=== PATIENT | female | born 1990 | race Hispanic/Latino ===

== ENCOUNTER 2017-08-06 09:09 | Emergency (ER) | payer SELFPAY ==
[2017-08-06 09:15] VITALS: RESP 18; O2SAT 100
[2017-08-06] MEDS ORDERED: Naproxen 550 mg Tab PO STA (09:30)
--- NOTE | 2017-08-06 09:32 | C.PDOC ---
History Of Present Illness 27-YEAR-OLD FEMALE, PRESENTS TO THE EMERGENCY DEPARTMENT WITH COMPLAINTS OF L FOOT INJURY YEST. PS ACCIDENTALLY JAMMED FOOT INTO BOTTOM OF TABLE. CO PAIN TOP OF FOOT, WORSE W WT BEAR. +PERSIST SWELLING TOP. DENIES OTHER INJURY, ASSOC SX EXAM NAD EXT L FOOT +LOCALIZED SWELL DORSAL W LOCAL TEND. NO DEFORM SKIN INTACT Time Seen by Provider: 08/06/17 09:20 Chief Complaint (Nursing): Lower Extremity Problem/Injury History Per: Patient History/Exam Limitations: no limitations Onset/Duration Of Symptoms: Days Current Symptoms Are (Timing): Still Present Severity: Moderate Past Medical History Reviewed: Historical Data, Nursing Documentation, Vital Signs Vital Signs: Last Vital Signs Temp 97.7 F 08/06/17 09:12 Pulse 64 08/06/17 09:12 Resp 18 08/06/17 09:12 BP 111/75 08/06/17 09:12 Pulse Ox 100 08/06/17 09:48 Family History: States: No Known Family Hx - Social History Hx Alcohol Use: Yes Hx Substance Use: No - Immunization History Hx Tetanus Toxoid Vaccination: No Hx Influenza Vaccination: No Hx Pneumococcal Vaccination: No Review Of Systems Constitutional: Negative for: Fever Respiratory: Negative for: Shortness of Breath Gastrointestinal: Negative for: Vomiting Musculoskeletal: Positive for: Foot Pain (L) Skin: Negative for: Rash Neurological: Negative for: Weakness, Numbness Physical Exam - Physical Exam Appears: Non-toxic, No Acute Distress Skin: Warm, Dry, No Rash Head: Atraumatic, Normacephalic Eye(s): bilateral: Normal Inspection, PERRL Nose: Normal Oral Mucosa: Moist Lips: Normal Appearing Neck: Normal ROM Respiratory: No Accessory Muscle Use Extremity: Other ( L FOOT +LOCALIZED SWELL DORSAL W LOCAL TEND. NO DEFORM) Neurological/Psych: Oriented x3, Normal Speech ED Course And Treatment O2 Sat by Pulse Oximetry: 100 - CT Scan/US L FOOT Other Rad Studies (CT/US): Interpreted By Me (NEG) Disposition Counseled Patient/Family Regarding: Studies Performed, Diagnosis, Need For Followup - Disposition Referrals: [facility] [Outside] [facility] [Outside] Disposition: HOME/ ROUTINE Disposition Time: 09:48 Condition: IMPROVED Instructions: Foot Contusion (ED) Forms: [employer] ([employer]), Work Excuse - Clinical Impression Clinical Impression: Foot contusion - Scribe Statement The provider has reviewed the documentation as recorded by the Scribe (Dio Conrad) All medical record entries made by the Scribe were at my direction and personally dictated by me. I have reviewed the chart and agree that the record accurately reflects my personal performance of the history, physical exam, medical decision making, and the department course for this patient. I have also personally directed, reviewed, and agree with the discharge instructions and disposition. Orthopedic Care Application Of:: [employer]
[2017-08-06] MEDS ORDERED: Naproxen 550 mg Tab PO ONE ×2 (09:39→09:40)
[2017-08-06 10:18] VITALS: BP 109/68; PULSE 67; TEMP 98.3
--- NOTE | 2017-08-06 17:16 | RAD ---
PROCEDURE: Left Foot Radiographs. HISTORY: TRAUMA COMPARISON: None. FINDINGS: BONES: No acute fracture. Bony prominence is seen over the dorsal aspect of the midfoot only evident in lateral projection. Significance unclear from this examination. JOINTS: Normal. SOFT TISSUES: Normal. OTHER FINDINGS: None. IMPRESSION: No acute fracture. Bony prominence over dorsum of midfoot, uncertain significance. Inadequately evaluated on the basis of this examination alone.
== END 2017-08-06 10:19 | disposition home or self-care (01) ==
LOC: C.ER 09:09
DX: S90.32XA Contusion of left foot, initial encounter (principal); W23.0XXA Caught, crushed, jammed, or pinched between moving objects, initial encounter
CPT/HCPCS: 73630; 96372; 99285; J1885